=== PATIENT | female | born 1980 | race Caucasian/White ===

== ENCOUNTER 2018-07-31 02:13 | Inpatient (IN) | payer MEDICAID ==
[2018-07-31] MEDS ORDERED: LACTATED RINGER'S 1,000 ML IV (02:37)
[2018-07-31 02:50] LABS: ADD MAN DIFF? NO
[2018-07-31] MEDS ORDERED: AMPICILLIN 2 GM/NS (PMX) 100 ML (02:51)
[2018-07-31 02:52] LABS: BASOPHILS % 0.2 % (0.0-2.0); EOSINOPHILS % 0.4 % (0.0-7.0); HEMATOCRIT 38.8 % (37.0-47.0); HEMOGLOBIN 13.1 g/dl (12.0-16.0); LYMPHOCYTES # 2.6 10^3/ul (0.8-2.9); LYMPHOCYTES % 25.5 % (15.0-51.0); MEAN CORPUSCULAR HEMOGLOBIN 29.7 pg (29.0-33.0); MEAN CORPUSCULAR HGB CONC 33.8 g/dl (32.0-37.0); MEAN PLATELET VOLUME 9.7 fl (7.4-10.4); MONOCYTE # 0.8 10^3/ul (0.3-0.9); MONOCYTES % 7.6 % (0.0-11.0); NEUTROPHIL # 6.6 10^3/ul (1.6-7.5); NEUTROPHILS % 65.4 % (39.0-77.0); PLATELET COUNT 212 10^3/UL (140-415); RED BLOOD COUNT 4.41 10^6/ul (4.20-5.40); RED CELL DISTRIBUTION WIDTH 13.5 % (11.5-14.5)
[2018-07-31 02:52] LABS: WHITE BLOOD COUNT 10.1 10^3/ul (4.8-10.8)
[2018-07-31] MEDS: AMPICILLIN 2 GM/NS (PMX) 100 ML IV (02:57)
[2018-07-31] MEDS: LACTATED RINGER'S 1,000 ML IV* ×4 (02:57→22:30)
[2018-07-31] MEDS ORDERED: LIDOCAINE 1% (MPF) 30 ML INJ INJ (03:00)
[2018-07-31] MEDS ORDERED: MISOPROSTOL 200 MCG TAB PR ×2 (03:00→06:30)
[2018-07-31] MEDS ORDERED: LIDOCAINE 0.5% (SDV) 50 ML INJ (03:00)
[2018-07-31] MEDS ORDERED: IBUPROFEN 600 MG TAB PO (03:00)
[2018-07-31] MEDS ORDERED: CARBOPROST 250 MCG INJ IM ×2 (03:00→06:30)
[2018-07-31] MEDS ORDERED: OXYTOCIN 30 UNITS/LR 500 ML IV ×2 (03:00→06:30)
[2018-07-31] MEDS ORDERED: METHYLERGONOVINE 0.2 MG INJ IM ×2 (03:00→06:30)
[2018-07-31] MEDS ORDERED: ACETAMINOPHEN/CODEINE #3 TAB PO (03:00)
[2018-07-31] MEDS ORDERED: BUTORPHANOL 2 MG INJ IV (03:00)
[2018-07-31 03:07] LABS: INR 0.84; PARTIAL THROMBOPLASTIN TIME 23.3 Sec (23.0-35.0); PROTIME 11.6 Sec (11.9-14.9); PT RATIO 0.9
[2018-07-31 03:41] LABS: HEPATITIS B SURFACE ANTIGEN NEGATIVE (NEGATIVE)
[2018-07-31] MEDS: OXYTOCIN 30 UNITS/LR 500 ML IV ×2 (05:07→05:10)
[2018-07-31] MEDS: MINERAL OIL LIGHT 10 ML VIAL TOP (05:10)
[2018-07-31] MEDS ORDERED: BENZOCAINE 20% 56 ML SPRAY TOP (06:30)
[2018-07-31] MEDS ORDERED: DIBUCAINE 1% 30 GM OINT PR (06:30)
[2018-07-31] MEDS ORDERED: ZOLPIDEM 5 MG TAB PO (06:30)
[2018-07-31] MEDS ORDERED: WITCH HAZEL/GLYCERIN PAD PR (06:30)
[2018-07-31] MEDS ORDERED: HYDROCODONE/APAP (5/325) TAB PO (06:30)
[2018-07-31] MEDS ORDERED: AMPICILLIN 1 GM/NS (PMX) 50 ML IV (07:00)
[2018-07-31] MEDS: MAGNESIUM HYDROXIDE 30ML CUP PO ×2 (09:17→21:42)
[2018-07-31] MEDS: SENNA/DOCUSATE NA (8.6MG/50MG) TAB PO ×2 (09:18→21:42)
[2018-07-31] MEDS: LANOLIN 7 GM TUBE TOP (09:18)
[2018-07-31] MEDS: HYDROCODONE/APAP (5/325) TAB PO (09:27)
[2018-07-31] MEDS: CEPHALEXIN 500 MG CAP PO ×3 (11:55→23:35)
[2018-07-31] MEDS: IBUPROFEN 600 MG TAB PO ×3 (11:56→23:35)
[2018-07-31 16:45] LABS: RAPID PLASMA REAGIN NONREACTIVE (NR)
[2018-08-01] MEDS: CEPHALEXIN 500 MG CAP PO ×4 (05:19→23:18)
[2018-08-01] MEDS: IBUPROFEN 600 MG TAB PO ×4 (05:19→23:18)
[2018-08-01] MEDS: LACTATED RINGER'S 1,000 ML IV* (06:30)
[2018-08-01 08:29] LABS: ADD MAN DIFF? NO
[2018-08-01 08:30] LABS: WHITE BLOOD COUNT 10.3 10^3/ul (4.8-10.8)
[2018-08-01 08:30] LABS: BASOPHILS % 0.2 % (0.0-2.0); EOSINOPHILS # 0.1 10^3/ul (0.0-0.5); EOSINOPHILS % 0.6 % (0.0-7.0); HEMATOCRIT 32.6 % (37.0-47.0); HEMOGLOBIN 10.7 g/dl (12.0-16.0); LYMPHOCYTES # 2.7 10^3/ul (0.8-2.9); MEAN CORPUSCULAR HEMOGLOBIN 29.7 pg (29.0-33.0); MEAN CORPUSCULAR HGB CONC 32.8 g/dl (32.0-37.0); MEAN CORPUSCULAR VOLUME 90.6 fl (82.0-101.0); MEAN PLATELET VOLUME 9.8 fl (7.4-10.4); MONOCYTE # 0.7 10^3/ul (0.3-0.9); MONOCYTES % 6.7 % (0.0-11.0); NEUTROPHIL # 6.8 10^3/ul (1.6-7.5); NEUTROPHILS % 65.6 % (39.0-77.0); PLATELET COUNT 175 10^3/UL (140-415); RED CELL DISTRIBUTION WIDTH 14.1 % (11.5-14.5)
[2018-08-01] MEDS: SENNA/DOCUSATE NA (8.6MG/50MG) TAB PO ×2 (09:00→21:00)
[2018-08-01] MEDS: MAGNESIUM HYDROXIDE 30ML CUP PO ×2 (09:00→21:51)
[2018-08-02] MEDS: CEPHALEXIN 500 MG CAP PO ×2 (05:12→12:13)
[2018-08-02] MEDS: IBUPROFEN 600 MG TAB PO ×2 (05:13→12:13)
[2018-08-02] MEDS: MEASLES,MUMPS,RUBELLA VACCINE INJ SC* (09:00)
[2018-08-02] MEDS: SENNA/DOCUSATE NA (8.6MG/50MG) TAB PO (09:00)
[2018-08-02] MEDS: VARICELLA VACCINE LIVE/PF 1,350 UNIT/0.5 ML ML SC* (09:00)
[2018-08-02] MEDS: MAGNESIUM HYDROXIDE 30ML CUP PO (09:00)
[2018-08-02] MEDS: DIPHTH/TET/ACEL PERTUSS (ADULT) 0.5 ML VIAL IM* (09:00)
== END 2018-08-02 12:50 | disposition home or self-care (01) | DRG 807 ==
LOC: OBT 02:13 → L-D 02:13 → OBT 02:22 → L-D 02:22 → PP1 06:25
PROVIDERS: Obstetrics & Gynecology
PROC: 10E0XZZ Delivery of Products of Conception, External Approach (ICD-10-PCS; principal; 2018-07-31)
DX: O80 Encounter for full-term uncomplicated delivery (principal); Z37.0 Single live birth; Z3A.40 40 weeks gestation of pregnancy
CPT/HCPCS: 85025; 85610; 85730; 86592; 86850; 86900; 86901; 87340; 90715; 90716